=== PATIENT | female | born 1970 | race African-American/Black ===

== ENCOUNTER → 2017-01-10 | Outpatient (CLI) | payer OTHER ==
--- NOTE | ~2017-01-10 | MY29 ---
[facility] A Service of [facility] RADIOLOGY TEXT RESULTS PATIENT: THANH DIEZ LOCATION: [facility] : 74 UNIT #: [id number] AGE: [address]: BENSON PIMENTEL MD SEX: F ORDER DR: [id number] [facility] [address] [place], [place] [address] [id number] O MR#: [id number] Acc #: [id number] NAME: THANH DIEZ : 1970 SEX: F STUDY DATE/TIME: 01/10/2017 10:55 UNIT: [facility] ROOM: STUDY DESCRIPTION: [facility] SCREENING W/ CAD BILAT Attending Physician: Benson Pimentel M.D. Referring Physician: Benson Pimentel M.D. Ordering Physician: Benson Pimentel M.D. Primary Care Physician: Benson Pimentel M.D. MEDICAL IMAGING REPORT This report is preliminary unless electronic signature is present EXAM Digital screening mammogram 01/10/2017 HISTORY 46-year-old woman no risk elevation. Annual screen. COMPARISON 08/24/2014. FINDINGS Digital imaging of each breast was completed utilizing screening protocol. Review includes FDA-approved CAD device. Breast parenchyma is moderately dense with residual nodular parenchymal opacities bilaterally, subareolar locations and upper outer quadrants. Subareolar duct prominence is noted in each breast. There is no interval occurring breast mass. There are no suspicious microcalcifications and no architectural deformity. IMPRESSION Negative mammogram. Annual screening recommended. Patients over the age of 40 are entered into a reminder system with target due date for the next mammogram. A result letter will also be sent to the patient. BIRADS: 1, negative Dictated by... Lb Marie M.D. THIS IS AN ELECTRONICALLY VERIFIED REPORT Lb Marie M.D. at 01/10/2017 3:44 PM JBB/rnr [facility] A Service of [facility] RADIOLOGY TEXT RESULTS PATIENT: THANH DIEZ LOCATION: [facility] #: [id number] : 74 UNIT #: [id number] AGE: [address]: BENSON PIMENTEL MD SEX: F ORDER DR: TD: 01/10/2017 14:54 JOB #: [id number] MEDICAL IMAGING REPORT Page 1 of 1 COPY
== END | disposition home or self-care (01) ==
LOC: CECH 01-01 13:45
DX: Z12.31 Encounter for screening mammogram for malignant neoplasm of breast (principal); R94.31 Abnormal electrocardiogram [ECG] [EKG]
CPT/HCPCS: 93306; G0202